=== PATIENT | female | born 1960 | race American Indian/Alaskan Native ===

== ENCOUNTER 2021-03-24 09:31 | Emergency (ER) | payer OTHER ==
[2021-03-24] MEDS ORDERED: ACETAMINOPHEN 500 MG TAB PO STA (10:43)
[2021-03-24] MEDS ORDERED: IBUPROFEN 800 MG TAB PO STA (10:43)
--- NOTE | 2021-03-24 11:49 | XRay Report ---
RIGHT KNEE 4 VIEWS LEFT KNEE 4 VIEWS INDICATION: pain after fall 1 week ago. Bilateral knee pain after fall COMPARISON: No relevant prior imaging study available. FINDINGS: Right knee: No fracture, dislocation. There is a small effusion. 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 Left knee: No fracture, dislocation, or significant effusion. No foreign bodies. IMPRESSION: 1. No acute fracture. 2. Small effusion on the right. Signer Name: Logan Sanders MD Signed: 03/24/2021 11:45 AM Workstation Name: [id number]
--- NOTE | 2021-03-24 11:51 | Emergency Department Report ---
ED General Adult HPI - General Chief complaint: Fall Stated complaint: FALL/KNEE PAIN Time Seen by Provider: 03/24/21 10:28 Source: patient Mode of arrival: Ambulatory Limitations: No Limitations - History of Present Illness Initial comments: 60 yo AA F pt presents with complaints of bilateral knee pain, right worse than left and left lower back pain x 7 days after a fall. Pt states she fell directly onto her right knee and caught herself with her hands. She rates her knee pain as an 8/10 in severity and states it worsens with walking and to touch. Pain is not improving with icy hot per pt. She denies any spinal pain, numbness/tingling/weakness in her limbs, or loss of bladder/bowel control. -: Gradual Severity scale (0 -10): 8 - Related Data Previous Rx's Medication Instructions Recorded Last Taken Type Naproxen [Naprosyn] 500 mg PO BID PRN #20 tablet 03/24/21 Unknown Rx methocarbamoL [Methocarbamol] 500 mg PO TID PRN #15 tablet 03/24/21 Unknown Rx Allergies Allergy/AdvReac Type Severity Reaction Status Date / Time No Known Allergies Allergy Unverified 03/24/21 10:02 ED Review of Systems ROS: Stated complaint: FALL/KNEE PAIN Other details as noted in HPI Constitutional: denies: malaise Gastrointestinal: denies: abdominal pain Musculoskeletal: back pain Neurological: denies: numbness, paresthesias, abnormal gait ED Past Medical Hx - Past Medical History Previous Medical History?: Yes Hx Hypertension: Yes - Surgical History Past Surgical History?: No - Medications Home Medications: Home Medications Medication Instructions Recorded Confirmed Last Taken Type Naproxen [Naprosyn] 500 mg PO BID PRN #20 tablet 03/24/21 Unknown Rx methocarbamoL [Methocarbamol] 500 mg PO TID PRN #15 tablet 03/24/21 Unknown Rx ED Physical Exam - General Limitations: No Limitations General appearance: alert, in no apparent distress - Head Head exam: Present: atraumatic, normocephalic - Eye Eye exam: Present: normal appearance. Absent: scleral icterus - Neck Neck exam: Present: full ROM - Respiratory Respiratory exam: Absent: respiratory distress - GI/Abdominal GI/Abdominal exam: Present: soft. Absent: tenderness - Expanded Lower Extremity Exam Right Knee exam: Present: full ROM, tenderness, effusion. Absent: abrasion, laceration, ecchymosis, deformity, crepidus, dislocation, erythema Lower Leg exam: Present: normal inspection Ankle exam: Present: normal inspection Neuro vascular tendon exam: Absent: pulse deficit, motor deficit, sensory deficit Left Knee exam: Present: full ROM, tenderness (mild, bilateral joint line ). Absent: swelling, abrasion, laceration, ecchymosis, deformity, crepidus Lower Leg exam: Present: normal inspection Ankle exam: Present: normal inspection Foot/Toe exam: Present: normal inspection Neuro vascular tendon exam: Absent: no vascular compromise Gait: Positive: observed and normal - Back Exam Back exam: Present: full ROM. Absent: vertebral tenderness - Expanded Back Exam Expanded Back exam: Absent: saddle anesthesia Back exam: Sciatic Notch Tenderness: Left, Positive Straight Leg Raise: Left - Neurological Exam Neurological exam: Present: alert, oriented X3, normal gait - Psychiatric Psychiatric exam: Present: normal affect, normal mood - Skin Skin exam: Present: warm, dry, intact, normal color. Absent: rash ED Course Vital Signs 03/24/21 03/24/21 03/24/21 10:06 11:05 11:06 Temperature 98.1 F Pulse Rate 81 Respiratory 18 17 17 Rate Blood Pressure 221/98 O2 Sat by Pulse 100 Oximetry ED Medical Decision Making - Radiology Data Radiology results: report reviewed INDICATION: pain after fall 1 week ago. Bilateral knee pain after fall COMPARISON: No relevant prior imaging study available. FINDINGS: Right knee: No fracture, dislocation. There is a small effusion. 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 Left knee: No fracture, dislocation, or significant effusion. No foreign bodies. IMPRESSION: 1. No acute fracture. 2. Small effusion on the right. - Medical Decision Making 60 yo AA F pt presents with complaints of bilateral knee pain, right worse than left and left lower back pain x 7 days after a fall. Pt states she fell directly onto her right knee and caught herself with her hands. She rates her knee pain as an 8/10 in severity and states it worsens with walking and to touch. Pain is not improving with icy hot per pt. She denies any spinal pain, numbness/tingling/weakness in her limbs, or loss of bladder/bowel control. X-ray shows right knee effusion without any acute bony abnormalities. Will treat conservatively with rice method blood pressure noted to be significantly elevated. Patient has history of hypertension and states she has not taken her blood pressure medicine in 2 days. She denies any neurological symptoms, headache chest pain or shortness of breath discussed in great detail with patient importance of compliance with blood pressure medication and blood pressure management, she verbalizes understanding. She is well-appearing and stable for discharge home. Strict return precautions were discussed in great detail with patient who verbalizes understanding. She is to follow-up with her primary care doctor in 3 to 5 days. Critical care attestation.: If time is entered above; I have spent that time in minutes in the direct care of this critically ill patient, excluding procedure time. ED Disposition Clinical Impression: Knee injury, Effusion, right knee, Low back pain Disposition: 01 HOME / SELF CARE / HOMELESS Is pt being admited?: No Condition: Stable Instructions: Knee Effusion, Piriformis Syndrome, Sciatica, Knee Sprain, Adult Prescriptions: methocarbamoL [Methocarbamol] 500 mg PO TID PRN #15 tablet PRN Reason: muscle spasm/tightness Naproxen [Naprosyn] 500 mg PO BID PRN #20 tablet PRN Reason: pain Referrals: PRIMARY CARE, [Referring] - 3-5 Days Forms: Work/School Release Form(ED)
[2021-03-24 12:43] VITALS: BP 218/89
== END 2021-03-24 12:44 | disposition home or self-care (01) ==
LOC: ED 09:31
DX: S89.91XA Unspecified injury of right lower leg, initial encounter (principal); S89.92XA Unspecified injury of left lower leg, initial encounter; M25.461 Effusion, right knee; M54.5 Low back pain; I10 Essential (primary) hypertension; W19.XXXA Unspecified fall, initial encounter; Y93.89 Activity, other specified; Y92.89 Other specified places as the place of occurrence of the external cause; Y99.8 Other external cause status
CPT/HCPCS: 99283